=== PATIENT | female | born 1995 | race Caucasian/White ===

== ENCOUNTER 2017-01-21 08:28 | Emergency (ER) | payer BC ==
[2017-01-21 09:00] VITALS: BP 126/52
[2017-01-21] MEDS ORDERED: Albuterol/Ipratropium NEB.SOL* Albuterol 2.5 MG/Ipratropium 0.5 MG 3 ML INH ONE (09:16)
--- NOTE | 2017-01-21 09:47 | UC ---
General HPI - HPI Summary HPI Summary: 21 yo female c/o progressively worse cough over the last week, but last few days has been much worse. Dark colored sputum, not bright red. "not the usual green." no rash. ?Fever. No chills. No GI issues except nausea with heavy cough. +fatigue. No sob. No chest pain except with cough. No rash. Nonsmoker. 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 Pt reports that her daughter's school sent home note about + case of whooping cough , but daughter is not sick. + sinus congestion. - History of Current Complaint Chief Complaint: UCRespiratory Stated Complaint: COUGH/RUNNY NOSE/BODY ACHE Time Seen by Provider: 01/21/17 09:16 Hx Obtained From: Patient Hx Last Menstrual Period: unknown Onset Severity: Mild Current Severity: Severe - Allergy/Home Medications Allergies/Adverse Reactions: Allergies Allergy/AdvReac Type Severity Reaction Status Date / Time No Known Allergies Allergy Verified 01/21/17 09:01 Home Medications: Home Medications Ibuprofen TAB* [Motrin TAB* 600 MG] 600 mg PO ONCE PRN 01/21/17 [History Confirmed 01/21/17] PMH/Surg Hx/FS Hx/Imm Hx Previously Healthy: Yes - Surgical History Surgical History: Yes Surgery Procedure, Year, and Place: t&a,c section - Family History Known Family History: Positive: Unknown - unknown , she is adopted - Social History Alcohol Use: None Substance Use Type: None Smoking Status (MU): Former Smoker Amount Used/How Often: 3 cig./day - Immunization History Most Recent Influenza Vaccination: 04/01 Most Recent Tetanus Shot: unsure Review of Systems Constitutional: Fatigue Skin: Negative Eyes: Negative ENT: Sinus Congestion Respiratory: Cough Cardiovascular: Negative Gastrointestinal: Negative Genitourinary: Negative Motor: Negative Neurovascular: Negative Musculoskeletal: Negative Neurological: Negative Psychological: Negative Is Patient Immunocompromised?: No All Other Systems Reviewed And Are Negative: Yes Physical Exam Triage Information Reviewed: Yes Appearance: Well-Nourished - sitting up. conversing easily in full sentances. Vital Signs: Initial Vital Signs Temp 98.8 F 01/21/17 08:52 Pulse 91 01/21/17 08:52 Resp 20 01/21/17 08:52 BP 126/52 01/21/17 08:52 Pulse Ox 100 01/21/17 08:52 Eye Exam: Normal - grossly normal. ENT: Positive: Pharyngeal erythema - mild. tongue a little dry., Nasal congestion, TM dull Neck exam: Normal Neck: Positive: Supple, Nontender, No Lymphadenopathy Respiratory Exam: Other - Poor deep inspiration, d/t cough and discomfort. Upper lung wills + exp and insp wheeze. BS equal as auscultatable. No rtx. No rash visible or reported. Nondiaphoretic. Respiratory: Positive: Wheezing Cardiovascular Exam: Normal Cardiovascular: Positive: RRR, No Murmur, Pulses Normal, Brisk Capillary Refill Abdominal Exam: Normal Abdomen Description: Positive: Nontender Musculoskeletal Exam: Normal Neurological Exam: Normal - grossly nonfocal Psychological Exam: Normal - conversing easily and appropriately Skin Exam: Normal Course/Dx - Course Course Of Treatment: Influenza swab neg. DuoNEb x 1 - improved. Chest xray - see Qustreet. Possible midlevel right side pneumonia. Reviewed xray report with pt. D/w tx plan / coa. She will f/u with a PCP as soon as she is able. School note written. Encouraged to seek medical attention (ED) for worse or new problems. Questions as posed answered to the best of my ability. - Differential Dx - Multi-Symptom Provider Diagnoses: Pneumonia Discharge - Discharge Plan Condition: Stable Disposition: HOME Prescriptions: Albuterol 2.5MG/3ML (0.083%)* [Ventolin 2.5 MG/3 ML NEB.ZENIA*] 2.5 mg INH Q4H PRN #1 box PRN Reason: Wheezing Albuterol HFA INHALER* [Ventolin HFA Inhaler*] 1 - 2 puff INH Q4H PRN #1 mdi PRN Reason: Wheezing Ciprofloxacin HCl [Cipro 500 MG TAB] 500 mg PO BID #20 tab Fluconazole [Diflucan 150 MG (NF)] 150 mg PO DAILY #2 tab Patient Education Materials: How to Use a Nebulizer (ED), Pneumonia (ED), Wheezing (ED) Referrals: [facility] [Outside] No Primary Care Phys,NOPCP [Primary Care Provider] - Additional Instructions: Follow up primary care physician as soon as possible - ideally in the next week. Seek immediate medical attention (emergency Department) if worse or new problems. Drink plenty of fluids. Eat yogurt and / or probiotic while taking antibiotic. Influenza a/b negative.
--- NOTE | 2017-01-21 10:08 | RAD ---
INDICATION: Cough and wheeze COMPARISON: None TECHNIQUE: PA and lateral views of the chest were obtained. FINDINGS: The heart and mediastinum are normal in size and contour. Immediately lateral to the right hilar structures is a vague density that could represent pneumonia in the correct clinical setting. The remaining lungs are clear. There is no evidence of large pleural effusion. Visualized bones are normal for the patient's age. There is no radiographic evidence of free air beneath the diaphragm IMPRESSION: POSSIBLE MID-LEVEL RIGHT LUNG PNEUMONIA.
== END 2017-01-21 10:53 | disposition home or self-care (01) ==
LOC: UCCORT 08:28
DX: J18.9 Pneumonia, unspecified organism (principal); Z87.891 Personal history of nicotine dependence
CPT/HCPCS: 71020; 87502; 87798; 99212; A9270-GY; G0463

== ENCOUNTER 2018-01-21 17:57 | Emergency (ER) | payer BC ==
[2018-01-21 19:12] VITALS: BP 120/49
--- NOTE | 2018-01-21 19:39 | UC ---
UC General HPI - HPI Summary HPI Summary: UTI. describes as 2 day hx burning with urination, hesitation and lower abdominal pressure. - History of Current Complaint Chief Complaint: UCGU Stated Complaint: URINARY COMPLAINT Time Seen by Provider: 01/21/18 19:26 Hx Obtained From: Patient Hx Last Menstrual Period: unknown Onset/Duration: Gradual Onset Timing: Constant Pain Intensity: 0 Associated Signs & Symptoms: Positive: Dysuria. Negative: Diarrhea, Fever, Vomiting - Allergy/Home Medications Allergies/Adverse Reactions: Allergies Allergy/AdvReac Type Severity Reaction Status Date / Time No Known Allergies Allergy Verified 01/21/17 09:01 PMH/Surg Hx/FS Hx/Imm Hx Previously Healthy: Yes - Surgical History Surgical History: Yes Surgery Procedure, Year, and Place: t&a,. c section - Family History Known Family History: Positive: Unknown - unknown , she is adopted - Social History Lives: With Family Alcohol Use: None Substance Use Type: None Smoking Status (MU): Former Smoker Amount Used/How Often: 3 cig./day - Immunization History Most Recent Influenza Vaccination: 04/01 Most Recent Tetanus Shot: unsure Vaccination Up to Date: Yes Review of Systems All Other Systems Reviewed And Are Negative: Yes Constitutional: Positive: Negative Skin: Positive: Negative Eyes: Positive: Negative ENT: Positive: Negative Respiratory: Positive: Negative Cardiovascular: Positive: Negative Gastrointestinal: Negative: Vomiting, Diarrhea, Nausea Genitourinary: Positive: Dysuria, Frequency, Urgency. Negative: Vaginal/Penile Discharge Motor: Positive: Negative Neurovascular: Positive: Negative Musculoskeletal: Positive: Negative Neurological: Positive: Negative Psychological: Positive: Negative Physical Exam Triage Information Reviewed: Yes Appearance: Well-Appearing Vital Signs: Initial Vital Signs Temp 98.6 F 01/21/18 19:02 Pulse 95 01/21/18 19:02 Resp 17 01/21/18 19:02 BP 120/49 01/21/18 19:02 Pulse Ox 99 01/21/18 19:02 Vital Signs Reviewed: Yes Eyes: Positive: Conjunctiva Clear ENT: Positive: Normal ENT inspection Neck: Positive: Supple, Nontender, No Lymphadenopathy Respiratory: Positive: Lungs clear, Normal breath sounds Cardiovascular: Positive: RRR, No Murmur Abdomen Description: Positive: Nontender, No Organomegaly, Soft. Negative: CVA Tenderness (R), CVA Tenderness (L), Distended, Guarding Bowel Sounds: Positive: Present Musculoskeletal: Positive: ROM Intact Neurological: Positive: Alert Psychological: Positive: Age Appropriate Behavior Skin Exam: Normal Diagnostics - Laboratory Diagnostic Studies Completed/Ordered: u/a=leukocytes and nitrites with culture pending. Course/Dx - Course Course Of Treatment: no acute abdomen. - Diagnoses Provider Diagnosis: UTI (urinary tract infection) Discharge - Sign-Out/Discharge Documenting (check all that apply): Patient Departure All imaging exams completed and their final reports reviewed: No Studies - Discharge Plan Condition: Stable Disposition: HOME Prescriptions: Nitrofurantoin Monohyd/M-Cryst [Macrobid 100 mg Capsule] 100 mg PO BID 5 Days # 10 cap Patient Education Materials: Urinary Tract Infection in Women (ED) Referrals: MARIA GUADALUPE Viramontes [Medical Doctor] - 7 Days - Billing Disposition and Condition Condition: STABLE Disposition: Home
[2018-01-21] MEDS ORDERED: Nitrofurantoin Macrocrystals* 50 MG CAP PO ONE (19:57)
== END 2018-01-21 19:48 | disposition home or self-care (01) ==
LOC: UCCORT 17:57
DX: N39.0 Urinary tract infection, site not specified (principal); Z87.891 Personal history of nicotine dependence
CPT/HCPCS: 81003; 87077; 87086; 87186; 99212; A9270-GY; G0463